=== PATIENT | female | born 1955 | race Caucasian/White ===

== ENCOUNTER 2019-01-22 17:41 | Inpatient (IN) | payer BC ==
[~2019-01-22] VITALS: Ht 167.6 cm; Wt 107.8 kg
--- NOTE | 2019-01-22 23:30 | NUR ---
ADMITTED PATIENT FROM [facility] VIA [facility], [id number]. NO DISTRESS NOTED. DENIES SOB, PAIN. WITH MILD BLE WEAKNESS NOTED. WILL PAGE DR MIRANDA FOR ORDERS. ROUTINE ADMISSION DONE. POCS DISCUSSED WITH PATIENT AND SHOWED UNDERSTANDING. BED KEPT ON LOWEST POSITION. SIDE RAILS UP. CALL LIGHT/TABLE IN REACH. KEPT COMFORTABLE.
--- NOTE | 2019-01-22 23:55 | NUR ---
SPOKE WITH DR MIRANDA REGARDING PATIENT AND HE GAVE ORDERS FOR THE PATIENT. NOTED.
[2019-01-23] VITALS: BP 134/60
--- NOTE | 2019-01-23 | NUR ---
PAGED DR WEINSTEIN, RE: CONSULT. AWAITING CALL BACK.
[2019-01-23] MEDS ORDERED: traMADol HCL 50 MG TAB PO PRN (00:15)
[2019-01-23] MEDS ORDERED: NITROGLYCERIN 0.4 MG SL TAB SL PRN ×2 (00:15)
[2019-01-23] MEDS ORDERED: MORPHINE SULF INJ 2 MG/ML SYRINGE 1ML IV PRN ×2 (00:15)
[2019-01-23] MEDS ORDERED: ONDANSETRON HCL 4 MG/2 ML VIAL IV PRN (00:15)
[2019-01-23] MEDS ORDERED: ALUM & MAG HYDROX-SIMETH LIQ(MAALOX) 30 ML PO PRN (00:15)
[2019-01-23] MEDS ORDERED: ACETAMINOPHEN 325 MG TAB PO PRN (00:15)
--- NOTE | 2019-01-23 00:20 | NUR ---
ASKED UI DEVELOPER WITH [employer] TO CALL DR WEINSTEIN, AGAIN BUT UI DEVELOPER WITH [employer] INFORMED ME THAT JS CALLED HER AND INSTRUCTED Milo STARR TO COVER HIM TONIGHT FOR ANY CONSULT. NOTED.
--- NOTE | 2019-01-23 00:34 | NUR ---
PAGED DR Milo STARR AND LET HIM KNOW ABOUT THE CONSULT AND PER INSTRUCTION BY DR WEINSTEIN, BUT Milo STARR SAID HE WAS ONLY AN CLAM SORTER FOR ACUTE GA. HE ADVISED TO NOTIFY DR WEINSTEIN IN THE AM TO SEE PATIENT. NOTED.
[2019-01-23] MEDS ORDERED: METO25TA5 PO (00:42)
[2019-01-23] MEDS ORDERED: ATOR80TA PO (00:42)
[2019-01-23] MEDS ORDERED: ASPI81CH43 PO (00:42)
[2019-01-23] MEDS ORDERED: METF-370 PO (00:42)
[2019-01-23 01:06] VITALS: BP 134/60
--- NOTE | 2019-01-23 03:20 | NUR ---
DR WEINSTEIN CALLED AND ORDERS MADE AND NOTED.
[2019-01-23] MEDS ORDERED: DEXTROSE (50%) 50ML SYRG IV PRN (03:30)
--- NOTE | 2019-01-23 04:00 | NUR ---
SAW PATIENT ON THE FLOOR BY THE FOOT PART OF THE BED. CLAIMED THAT SHE SLIPPED WHILE WANTING TO GO TO THE BATHROOM. VITALS CHECKED AND ARE STABLE. NO OBVIOUS INJURY SEEN. PATIENT ADDED THAT SHE IS OKAY AND SHE DOES NOT WANT TO CAUSE ANY TROUBLE. EXPLAINED TO PATIENT THAT I NEED TO REPORT THE EVENT TO THE MD AND CHARGE NURSE. MADE CHARGE NURSE AWARE AND WILL INFORM THE MD IN THE AM. FALL PROTOCOL INITIATED. BED ALARM ON. CALL LIGHT IN REACH. ADVISED TO CALL FOR ANYTHING THAT SHE NEEDS. SHOWED UNDERSTANDING.
[2019-01-23] MEDS: SODIUM CHLORIDE 0.9% 1,000 ML IV SCH ×2 (04:16→16:50)
[2019-01-23 05:48] VITALS: BP 145/75
[2019-01-23] MEDS ORDERED: ASPirin-EC 325mg tab PO ONE (06:00)
[2019-01-23 06:04] LABS: Basophils # (auto) 0 uL; Basophils % (auto) 0.6 % (0.0-2.0); Eosinophils # (auto) 0.2 uL; Eosinophils % (auto) 3.4 % (0.0-7.0); Hemoglobin 14.6 g/dL (12.2-16.2); Lymphocytes # (auto) 2.4 uL; Lymphocytes % (auto) 32.9 % (10.0-50.0); Mean Corpuscular Hemoglobin 30.5 pg (28.0-32.0); Mean Corpuscular Volume 89.5 fL (80.0-100.0); Monocytes # (auto) 0.6 uL; Monocytes % (auto) 8.2 % (0.0-12.0); Neutrophils # (auto) 4.1 uL; Neutrophils % (auto) 54.9 % (37.0-80.0); Nucleated Red Blood Cells % 0.1 %; Platelet Count (auto) 201 10^3/uL (140-450); Red Cell Distribution Width 13.8 % (11.8-14.3); White Blood Cell 7.4 10^3/uL (4.4-10.8)
--- NOTE | 2019-01-23 06:09 | NUR ---
INFORMED DR MIRANDA ON THE PATIENT'S FALL INCIDENT. NO ORDERS GIVEN. NOTED. PATIENT IS ASLEEP AT THIS TIME. WILL CONTINUE TO MONITOR.
--- NOTE | 2019-01-23 06:13 | NUR ---
ON BED, ASLEEP. STABLE. NO DISTRESS NOTED. FOR MORE CARE AND MANAGEMENT.
[2019-01-23 06:14] LABS: INR 1.01 (0.9-1.15); Partial Thromboplastin Time 30.6 sec (23.78-33.04); Prothrombin Time 10.8 sec (9.27-12.13)
[2019-01-23 06:16] LABS: Potassium 3.9 mmol/L (3.5-5.1)
[2019-01-23 06:27] LABS: Albumin 3.1 g/dL (3.4-5.0); BUN/Creatinine Ratio 16.7; Bilirubin, Total 0.5 mg/dL (0.2-1.0); Calcium 8.3 mg/dL (8.5-10.1); Total Protein 6.7 g/dL (6.4-8.2)
[2019-01-23] MEDS: InsuLIN REG 1unit/0.01ml Soln (100units/ml) SC SCH ×3 (06:39→17:00)
[2019-01-23] MEDS: ACCU-CHEK COMFORT CURVE STRIP VI SCH ×3 (06:39→17:00)
--- NOTE | 2019-01-23 06:49 | NUR ---
VERIFIED WITH [employer] DEVELOPMENT MANAGER SHAR LUA: IF PATIENT IS SCHEDULED FOR HEART CATH AROUND 10-[address] WEINSTEIN. HE WILL VERIFY THE PROCEDURE. NOTED.
--- NOTE | 2019-01-23 06:50 | NUR ---
TROP= 4.130 PATIENT IS ASLEEP. NO DISTRESS NOTED. PAGED WEINSTEIN. AWAITING CALL BACK.
[2019-01-23] MEDS ORDERED: ACCU-CHEK COMFORT CURVE STRIP VI SCH (07:00)
--- NOTE | 2019-01-23 07:30 | NUR ---
OPENING NOTE Assumed care of patient from NOC RN. Patient awake and alert with no S/S of distress/SOB or pain. Instructed on POC and to call for assist PRN, verbalized understanding. Bed in lowest, locked position with side rails up x2 and call light within reach. Will continue to monitor for changes Q1hr and PRN.
--- NOTE | 2019-01-23 07:54 | NUR ---
OFF UNIT Patient taken off unit via bed for scheduled Angiogram. No S/S of distress noted.
[2019-01-23] MEDS ORDERED: IODIXANOL 320MG/ML 100ML BTL IV ONE (08:42)
[2019-01-23] MEDS ORDERED: LIDOCAINE 2%HCL (LOCAL ANESTH.) INJ 20ML MDV ONE (08:42)
[2019-01-23] MEDS ORDERED: ANGIOMAX 250 MG VIAL IV ONE (08:43)
[2019-01-23] MEDS ORDERED: MIDAZOLAM HCL 1MG/1ML-2 ML VIAL ONE (08:44)
[2019-01-23] MEDS ORDERED: fentaNYL CITRATE 100 MCG/2 ML VL ONE (08:44)
[2019-01-23] MEDS ORDERED: SODIUM CHL 0.9% 0 ML ONE (08:44)
[2019-01-23 09:00] VITALS: BP 160/73
[2019-01-23] MEDS ORDERED: hydrALAZINE HCL 20 MG/ML VL ONE (09:30)
[2019-01-23] MEDS ORDERED: ASPirin 81 mg TAB PO SCH (10:00)
[2019-01-23] MEDS ORDERED: METOPROLOL TARTRATE 25 MG TAB PO SCH ×2 (10:00→22:00)
[2019-01-23] MEDS ORDERED: ASPirin-EC 325mg tab PO SCH (10:00)
[2019-01-23] MEDS ORDERED: ATORVASTATIN 20 MG TAB PO ONE (10:00)
[2019-01-23] MEDS ORDERED: PANTOPRAZOLE 40 MG TAB PO SCH (10:00)
[2019-01-23] MEDS ORDERED: CLOPIDOGREL 300 MG TAB PO ONE (10:00)
[2019-01-23] MEDS ORDERED: ENOXAPARIN SOD 80 MG/0.8ML SYRINGE SC SCH ×2 (10:00)
[2019-01-23] MEDS ORDERED: ASPirin 325 MG TAB PO ONE (10:00)
--- NOTE | 2019-01-23 10:22 | NUR ---
RETURN TO UNIT Patient returned to unit via bed. Safeguard intact, right groin with no S/S of bleeding or hemorrhage noted. Per report, patient needs to lay flat until 11:40. Will continue to monitor frequently.
[2019-01-23] MEDS ORDERED: RANOLAZINE ER 500 MG TAB PO ONE (11:15)
[2019-01-23 11:27] VITALS: BP 122/72
--- NOTE | 2019-01-23 12:03 | NUR ---
PAGED Left message for Dr. Rob regarding patient's diet. Patient is still currently NPO, requesting diet order.
[2019-01-23] MEDS: ISOSORBIDE DINITRATE 10 MG TAB PO SCH ×2 (12:17→18:00)
--- NOTE | 2019-01-23 14:11 | NUR ---
SAFEGUARD Air released from Safeguard dressing. No S/S of active bleeding, will continue to monitor.
--- NOTE | 2019-01-23 17:55 | NUR ---
DISCHARGE Discharge instructions given as ordered. Encouraged to follow up with PMD and cardiology as instructed. All questions and concerns addressed. Patient verbalized understanding. Medication reconciliation form completed and copy given to patient. IV removed with catheter intact and pressure dressing applied. Right groin Safeguard dressing removed, no S/S of active bleeding. Applied sterile gauze to incision site and covered with tegaderm. Telemetry unit returned to [facility]. Patient taken to vehicle via wheelchair with all personal belongings, accompanied by staff and family member. No distress noted at time of departure.
[2019-01-23] MEDS ORDERED: RANOLAZINE ER 500 MG TAB PO SCH (22:00)
[2019-01-24] MEDS ORDERED: CLOPIDOGREL BISULFATE 75 MG TAB PO SCH (10:00)
== END 2019-01-23 17:55 | disposition home or self-care (01) | DRG 282 ==
LOC: TELE-WESTW 23:45
PROVIDERS: ADMIT Hospitalist; ATTEND Hospitalist
PROC: 4A023N7 Measurement of Cardiac Sampling and Pressure, Left Heart, Percutaneous Approach (ICD-10-PCS; principal; 2019-01-23)
PROC: B2111ZZ Fluoroscopy of Multiple Coronary Arteries using Low Osmolar Contrast (ICD-10-PCS; 2019-01-23)
PROC: B2131ZZ Fluoroscopy of Multiple Coronary Artery Bypass Grafts using Low Osmolar Contrast (ICD-10-PCS; 2019-01-23)
PROC: B2181ZZ Fluoroscopy of Left Internal Mammary Bypass Graft using Low Osmolar Contrast (ICD-10-PCS; 2019-01-23)
DX: T82.858A Stenosis of other vascular prosthetic devices, implants and grafts, initial encounter (principal); I21.4 Non-ST elevation (NSTEMI) myocardial infarction; E11.9 Type 2 diabetes mellitus without complications; E66.01 Morbid (severe) obesity due to excess calories; E78.00 Pure hypercholesterolemia, unspecified; E78.5 Hyperlipidemia, unspecified; F15.10 Other stimulant abuse, uncomplicated; I11.9 Hypertensive heart disease without heart failure; I25.82 Chronic total occlusion of coronary artery; I25.10 Atherosclerotic heart disease of native coronary artery without angina pectoris; Y83.2 Surgical operation with anastomosis, bypass or graft as the cause of abnormal reaction of the patient, or of later complication, without mention of misadventure at the time of the procedure; I25.2 Old myocardial infarction; Z82.49 Family history of ischemic heart disease and other diseases of the circulatory system; Z83.3 Family history of diabetes mellitus; Z91.14 Patient's other noncompliance with medication regimen; Z91.19 Patient's noncompliance with other medical treatment and regimen; Z95.1 Presence of aortocoronary bypass graft; Y92.89 Other specified places as the place of occurrence of the external cause; Z88.1 Allergy status to other antibiotic agents; Z68.38 Body mass index [BMI] 38.0-38.9, adult
CPT/HCPCS: 36415; 80053; 82962; 84484; 85025; 85610; 85730; A6257; G0378; J1815; J2250; J2405; Q9967